=== PATIENT | male | born 1990 | race Caucasian/White ===

== ENCOUNTER 2022-09-16 22:45 | Emergency (ER) | payer SELFPAY ==
[~2022-09-16] VITALS: Ht 170.2 cm; Wt 61.2 kg
[2022-09-16 22:52] VITALS: BP_SYST 124
--- NOTE | 2022-09-16 22:52 | NUR ---
Triaged and placed patient to ER CHAIR 2 for evaluation. Report given to FEI JAQUEZ for continuity of care. Bed placed in lowest position with side rails up. Instructed to notify ED staff for any changes in condition or worsening of symptoms while waiting to be seen by a provider. Patient verbalized understanding.
--- NOTE | 2022-09-16 23:02 | NUR ---
Dr. Garcia at bedside examining the patient.
--- NOTE | 2022-09-16 23:15 | NUR ---
Patient given written and verbal discharge instructions and verbalizes understanding. ER MD discussed with patient the results and treatment provided. Patient in stable condition. ID arm band removed. no Rx of given. Patient educated on pain management and to follow up with PMD. Pain Scale 0/10. Opportunity for questions provided and answered. Medication side effect fact sheet provided.
[2022-09-16 23:20] VITALS: BP_SYST 121
== END 2022-09-16 23:15 ==
LOC: SED 22:45
DX: Z02.89 Encounter for other administrative examinations (principal); S00.81XA Abrasion of other part of head, initial encounter; Z79.899 Other long term (current) drug therapy; X58.XXXA Exposure to other specified factors, initial encounter; Y93.89 Activity, other specified; Y92.89 Other specified places as the place of occurrence of the external cause; Y99.8 Other external cause status
CPT/HCPCS: 99283